=== PATIENT | male | born 1970 | race Caucasian/White ===

== ENCOUNTER 2016-07-21 21:29 | Emergency (ER) | payer SELFPAY ==
[2016-07-21 22:20] VITALS: BMI 25.7
[2016-07-21 22:34] LABS: ALL NEG? NO
[2016-07-21 22:36] LABS: AUTOMATED BASOPHIL 1.2 % (0-2); AUTOMATED EOSINOPHIL 1.1 % (0-5); AUTOMATED LYMPH 29.5 % (17-44); AUTOMATED NEUTROPHIL 62.2 % (45-76); MPV 7.5 fL (7.4-10.4)
[2016-07-21 22:45] LABS: LEUKOCYTES/URINE NEG (NEGATIVE); MDMA* NEG (NEGATIVE); METHAMPHETAMINES NEG (NEGATIVE); NITRITE/URINE NEG (NEGATIVE); OXYCODONE NEG (NEGATIVE); URINE OCCULT BLOOD NEG (NEG/TRACE)
[2016-07-21 22:51] LABS: BLOOD UREA NITROGEN 8 MG/DL (9-20); CALCULATED OSMOLALITY 288 MOs/Kg (270-290); CHLORIDE 108 mEq/L (98-107); GLUCOSE 101 MG/DL (70-99); SODIUM LEVEL 151 mEq/L (137-146); TOTAL PROTEIN 7.1 G/DL (6.3-8.2)
[2016-07-21] MEDS ORDERED: SODIUM CHLORIDE 0.9% 3 ML FLUSH FLUSH PRN (23:05)
[2016-07-21 23:07] LABS: ETOH-MGDL 450 mg/dL
[2016-07-21] MEDS ORDERED: THIAMINE 100 MG in NS 100 ML IV ONE (23:45)
--- NOTE | 2016-07-21 23:57 | EDPRACDOC ---
- General Information Chief Complaint: Alcohol Withdrawal Stated Complaint: DETOX Time Seen by Provider: 07/21/16 22:31 Information Source: Patient Mode Of Arrival: Car Home Medications: Home Medications Phenytoin Sodium Extended [Dilantin] 100 mg PO DAILY 03/20/16 Sertraline HCl [Zoloft] 100 mg PO QHS 03/20/16 CloNIDine (Antihypertensive) [Catapres] 0.1 mg PO TID 07/04/16 Hydroxyzine Pamoate 50 mg PO QHS PRN 07/04/16 Ibuprofen 600 mg PO Q6H PRN #20 tablet 07/04/16 Trazodone HCl 100 mg PO QHS PRN 07/04/16 Amoxicillin 250 mg PO QID 07/21/16 Allergies/Adverse Reactions: Allergies Allergy/AdvReac Type Severity Reaction Status Date / Time peanut Allergy Hives* Verified 07/22/16 00:19 Penicillins Allergy Rash-Genera Verified 07/22/16 00:19 lized shellfish derived Allergy Hives* Verified 07/22/16 00:19 - History of Present Illness Onset: [employer] Reason for Seeking Treatment: Other ([facility] went to [facility] with signs of etoh intoxication) Drinking Timeframe: Reports: Unknown Lacerations: Reports: None Alcohol Ingested: Reports: ETOH Alcohol Type: Reports: Liquor Amount Per Day: half gallon per day Last Used: [employer] Circumstances: Reports: Medical Clearance Relevant History: Reports: Alcoholism, ETOH Withdrawal, Detox Treatment. Denies : Substance Abuse Associated Signs & Symptoms: Reports: None - Alcohol Withdrawal Screening Recent significant alcohol intake (estimated BAL >0.15): Yes (he is clinically intoxicated, and he has liquor in his coat) Recent cessation of alcohol intake: No Any indication of Alcohol Withdrawal Syndrome: negative: Autonomic Hyperactivity , Nausea/Vomiting, Hallucinations, Seizure Any Hx Alcohol Withdrawal Syndrome or Delirium Tremens: Yes (pt states hx sz's with withdrawal) Other Psychiatric Conditions: Positive: Depression ED Past Medical History - History Reviewed Yes Nurses notes reviewed and agree except as marked - Patient Medical History Neurological History: Reports: Seizures Psychological History: Reports: Depression - Social Medical History Smoking Status: Heavy tobacco smoker (5 or more cigarettes/day or daily pipe/ cigar) EDM Review of Systems - Review of Systems ROS Unobtainable: Yes Review of systems cannot be obtained due to the patient's medical condition (intoxication and evasiveness) - Physical Exam Constitutional: Other (pt would not allow himself to be examined. the examis therefore very general) Oriented to: Person Last recorded Vital Signs: Last Vital Signs Temp 98.8 F 07/21/16 21:49 Pulse 90 07/21/16 23:39 Resp 20 07/21/16 23:39 BP 121/64 07/21/16 23:39 Pulse Ox 95 07/21/16 23:39 Oxygen Pulse Oxygen Saturation 95 O2 Device Room Air Oxygen Flow Rate Fraction of Inspired Oxygen ( FIO2) - HEENT Head: Normal - Respiratory/Cardiovascular Respiratory: Other (no dyspnea). negative: Accessory Muscle Use, Tachypnea - Musculoskeletal Extremities: Other (no deformities) - Integumentary Skin: negative: Pale, Rash - Neurologic Cranial Nerve: Normal Mood Description: Uncooperative. negative: Combative Thought: Rambling Conversation. negative: Delusions Neurologic Comment: he is awake and alert to person - Re-evaluation Re-evaluation 1 Re-evaluation Time: 01:32 (i was summoned to pt's bedside b/c he suggested that he may leav [facility]. the pt actually said to me that he would prefer not to leave [facility], that he wouldprefer to speak with mental health professionals to help him to stop etoh abuse. he is unhappy about being in the [facility] staff said that they will try to find a more private room for him.) Re-evaluation 2 Re-evaluation Time: 06:10 (pt up and about, walking doesnt appear to be intoxicated clinically. 2nd etoh is pending.) Re-evaluation 3 Re-evaluation Time: 07:05 (pt is conversant and not intoxicated clinically. wants dc. will comply. he wants to go to his home in [place]) - Results Result Diagrams: 07/21/16 22:24 07/21/16 22:24 WBC 9.5 xk/uL (3.8-10.8) 07/21/16 22:24 RBC 4.12 xM/uL (4.70-6.10) L 07/21/16 22:24 Hgb 12.8 g/dL (14.0-18.0) L 07/21/16 22:24 Hct 37.6 % (42-52) L 07/21/16 22:24 MCV 91 fL (80-94) 07/21/16 22:24 MCH 31.0 pg (27-32) 07/21/16 22:24 MCHC 34.0 g/dl (33-36) 07/21/16 22:24 RDW 13.2 % (11.5-14.5) 07/21/16 22:24 Plt Count 318 xk/uL (130-400) 07/21/16 22:24 MPV 7.5 fL (7.4-10.4) 07/21/16 22:24 Neut % (Auto) 62.2 % (45-76) 07/21/16 22:24 Lymph % (Auto) 29.5 % (17-44) 07/21/16 22:24 Haywood % (Auto) 6.0 % (3-10) 07/21/16 22:24 Eos % (Auto) 1.1 % (0-5) 07/21/16 22:24 Baso % (Auto) 1.2 % (0-2) 07/21/16 22:24 Absolute Neuts (auto) 5.89 xk/uL (1.7-8.2) 07/21/16 22:24 Absolute Lymphs (auto) 2.76 xk/uL (0.65-4.75) 07/21/16 22:24 Sodium 151 mEq/L (137-146) H 07/21/16 22:24 Potassium 3.9 mEq/L (3.5-5.1) 07/21/16 22:24 Chloride 108 mEq/L (98-107) H 07/21/16 22:24 Carbon Dioxide 25 mMOL/L (22-33) 07/21/16 22:24 Anion Gap 22 mEq/L (8-16) H 07/21/16 22:24 BUN 8 MG/DL (9-20) L 07/21/16 22:24 Creatinine 0.70 MG/DL (0.66-1.25) 07/21/16 22:24 Estimated GFR (MDRD) > 60 mL/min (>=60) 07/21/16 22:24 Glucose 101 MG/DL (70-99) H 07/21/16 22:24 Calculated Osmolality 288 MOs/Kg (270-290) 07/21/16 22:24 Calcium 9.0 MG/DL (8.4-10.2) 07/21/16 22:24 Total Bilirubin 0.3 MG/DL (0.2-1.3) 07/21/16 22:24 AST 43 IU/L (17-59) 07/21/16 22:24 ALT 35 IU/L (21-72) 07/21/16 22:24 Alkaline Phosphatase 62 IU/L (38-126) 07/21/16 22:24 Total Protein 7.1 G/DL (6.3-8.2) 07/21/16 22:24 Albumin 4.1 G/DL (3.5-5.0) 07/21/16 22:24 Urine Color Yellow 07/21/16 21:51 Urine Clarity Clear 07/21/16 21:51 Urine pH 7.0 (5.0-8.0) 07/21/16 21:51 Ur Specific Brady </=1.005 (1.003-1.035) 07/21/16 21:51 Urine Protein Neg (NEG/TRACE) 07/21/16 21:51 Urine Glucose (UA) Neg (NEGATIVE) 07/21/16 21:51 Urine Ketones Neg (NEGATIVE) 07/21/16 21:51 Urine Occult Blood Neg (NEG/TRACE) 07/21/16 21:51 Urine Nitrite Neg (NEGATIVE) 07/21/16 21:51 Urine Bilirubin Neg (NEGATIVE) 07/21/16 21:51 Urine Urobilinogen <2.0 MG/DL (0-1) 07/21/16 21:51 Ur Leukocyte Esterase Neg (NEGATIVE) 07/21/16 21:51 Urine Opiates Screen Neg (NEGATIVE) 07/21/16 21:51 Ur Oxycodone Screen Neg (NEGATIVE) 07/21/16 21:51 Urine Methadone Screen Neg (NEGATIVE) 07/21/16 21:51 Ur Barbiturates Screen Neg (NEGATIVE) 07/21/16 21:51 Ur Tricyclics Screen Neg (NEGATIVE) 07/21/16 21:51 Ur Phencyclidine Scrn Neg (NEGATIVE) 07/21/16 21:51 Ur Amphetamines Screen *positive* (NEGATIVE) H 07/21/16 21:51 U Methamphetamines Scrn Neg (NEGATIVE) 07/21/16 21:51 Urine MDMA Screen Neg (NEGATIVE) 07/21/16 21:51 U Benzodiazepines Scrn *positive* (NEGATIVE) H 07/21/16 21:51 Urine Cocaine Screen Neg (NEGATIVE) 07/21/16 21:51 Ur THC Screen Neg (NEGATIVE) 07/21/16 21:51 Plasma/Serum Ethyl Alc 0.45 % (<0.01) H* 07/21/16 22:24 Lab Results 07/21/16 07/21/16 07/21/16 22:24 22:24 21:51 WBC 9.5 RBC 4.12 L Hgb 12.8 L Hct 37.6 L MCV 91 MCH 31.0 MCHC 34.0 RDW 13.2 Plt Count 318 MPV 7.5 Neut % (Auto) 62.2 Lymph % (Auto) 29.5 Haywood % (Auto) 6.0 Eos % (Auto) 1.1 Baso % (Auto) 1.2 Absolute Neuts (auto) 5.89 Absolute Lymphs (auto) 2.76 Sodium 151 H Potassium 3.9 Chloride 108 H Carbon Dioxide 25 Anion Gap 22 H BUN 8 L Creatinine 0.70 Estimated GFR (MDRD) > 60 Glucose 101 H Calculated Osmolality 288 Calcium 9.0 Total Bilirubin 0.3 AST 43 ALT 35 Alkaline Phosphatase 62 Total Protein 7.1 Albumin 4.1 Urine Color Yellow Urine Clarity Clear Urine pH 7.0 Ur Specific Brady </=1.005 Urine Protein Neg Urine Glucose (UA) Neg Urine Ketones Neg Urine Occult Blood Neg Urine Nitrite Neg Urine Bilirubin Neg Urine Urobilinogen <2.0 Ur Leukocyte Esterase Neg Urine Opiates Screen Ur Oxycodone Screen Urine Methadone Screen Ur Barbiturates Screen Ur Tricyclics Screen Ur Phencyclidine Scrn Ur Amphetamines Screen U Methamphetamines Scrn Urine MDMA Screen U Benzodiazepines Scrn Urine Cocaine Screen Ur THC Screen Plasma/Serum Ethyl Alc 0.45 H* 07/21/16 21:51 WBC RBC Hgb Hct MCV MCH MCHC RDW Plt Count MPV Neut % (Auto) Lymph % (Auto) Haywood % (Auto) Eos % (Auto) Baso % (Auto) Absolute Neuts (auto) Absolute Lymphs (auto) Sodium Potassium Chloride Carbon Dioxide Anion Gap BUN Creatinine Estimated GFR (MDRD) Glucose Calculated Osmolality Calcium Total Bilirubin AST ALT Alkaline Phosphatase Total Protein Albumin Urine Color Urine Clarity Urine pH Ur Specific Brady Urine Protein Urine Glucose (UA) Urine Ketones Urine Occult Blood Urine Nitrite Urine Bilirubin Urine Urobilinogen Ur Leukocyte Esterase Urine Opiates Screen Neg Ur Oxycodone Screen Neg Urine Methadone Screen Neg Ur Barbiturates Screen Neg Ur Tricyclics Screen Neg Ur Phencyclidine Scrn Neg Ur Amphetamines Screen *positive* H U Methamphetamines Scrn Neg Urine MDMA Screen Neg U Benzodiazepines Scrn *positive* H Urine Cocaine Screen Neg Ur THC Screen Neg Plasma/Serum Ethyl Alc Decision Time to Discharge: 07:06 - Departure Yes I personally saw and evaluated the patient. Disposition: Home Condition: Improved Final Diagnosis: Alcohol abuse, Alcohol intoxication Instructions: Abuse of Alcohol (ED), Alcohol Withdrawal (ED), Alcohol Intoxication (ED) Education/Counseling Given To: Patient Education/Counseling Given Regarding: Diagnosis, Treatment, Follow Up Referrals: None,No Provider [Primary Care Provider] - One Week Lionel Mckeon II, MD [Staff Physician] - Call for Appointment
[2016-07-22] MEDS ORDERED: LORAZEPAM 2 MG/ML VIAL IV ONE (01:32)
[2016-07-22] MEDS ORDERED: SODIUM CHLORIDE 0.9% 3 ML FLUSH FLUSH SCH (06:00)
[2016-07-22 06:27] VITALS: TEMP 98.1
[2016-07-22 07:21] VITALS: BP 101/67; PULSE 111
== END 2016-07-22 07:25 | disposition home or self-care (01) ==
LOC: ED 21:29
DX: F10.229 Alcohol dependence with intoxication, unspecified (principal); F17.200 Nicotine dependence, unspecified, uncomplicated
CPT/HCPCS: 36415; 80053; 80307; 80320; 81001; 85025; 86592; 96365; 96366; 96375; 99284; J2060; J3411; J7030

== ENCOUNTER 2016-07-22 19:17 | Emergency (ER) | payer SELFPAY ==
[2016-07-22 19:31] VITALS: TEMP 97.9; BMI 25.8
[2016-07-22 19:48] LABS: AUTOMATED BASOPHIL 1.6 % (0-2); AUTOMATED EOSINOPHIL 0.1 % (0-5); AUTOMATED LYMPH 20.6 % (17-44); AUTOMATED MONOCYTE 2.5 % (3-10); AUTOMATED NEUTROPHIL 75.2 % (45-76); MPV 7.5 fL (7.4-10.4)
[2016-07-22 19:57] LABS: BLOOD UREA NITROGEN 13 MG/DL (9-20); CALCIUM 8.8 MG/DL (8.4-10.2); CALCULATED OSMOLALITY 283 MOs/Kg (270-290); CHLORIDE 107 mEq/L (98-107); GLUCOSE 72 MG/DL (70-99); SODIUM LEVEL 148 mEq/L (137-146); TOTAL PROTEIN 7.8 G/DL (6.3-8.2)
[2016-07-22 20:05] LABS: ETOH-MGDL 369 mg/dL
[2016-07-22 22:30] LABS: ALL NEG? NO
--- NOTE | 2016-07-22 22:35 | EDPRACDOC ---
ED Alcohol/Substance Withdrawl - General Information Chief Complaint: Psychiatric Illness Stated Complaint: PATIENT REQUESTING DETOX Time Seen by Provider: 07/22/16 22:11 Information Source: Patient Mode of Arrival: Walk Home Medications: Home Medications Phenytoin Sodium Extended [Dilantin] 100 mg PO DAILY 03/20/16 Sertraline HCl [Zoloft] 100 mg PO QHS 03/20/16 CloNIDine (Antihypertensive) [Catapres] 0.1 mg PO TID 07/04/16 Hydroxyzine Pamoate 50 mg PO QHS PRN 07/04/16 Ibuprofen 600 mg PO Q6H PRN #20 tablet 07/04/16 Trazodone HCl 100 mg PO QHS PRN 07/04/16 Amoxicillin 250 mg PO QID 07/21/16 Allergies/Adverse Reactions: Allergies Allergy/AdvReac Type Severity Reaction Status Date / Time peanut Allergy Hives* Verified 07/22/16 19:30 Penicillins Allergy Rash-Genera Verified 07/22/16 19:30 lized shellfish derived Allergy Hives* Verified 07/22/16 19:30 - History of Present Illness HPI: PT PRESENTS FOR ETOH TREATMENT. PT WAS OVER 140 DAYS CLEAN UNTIL BEFORE WHEN HE RELAPSED, DRINKING A FIFTH OF ALCOHOL DAILY. PT WAS IN A [facility] HOUSE IN [place], BUT WAS KICKED OUT. SEEN IN ED LAST NIGHT. PROVIDED WITH FUNDS TO RIDE BUS TO HIS HOME IN [place]. PT RETURNS TODAY, C /O SUICIDAL IDEATIONS. ONLY PLAN IS TO DRINK HIMSELF TO . HAS BEEN PLAN FOR YEARS. HE STATES HE CAN'T FIGURE OUT WHY IT WON'T KILL HIM. PT DENIES HI. NO PHYSICAL COMPLAINTS. ED Past Medical History - History Reviewed Yes Nurses notes reviewed and agree except as marked - Patient Medical History Neurological History: Reports: Seizures Psychological History: Denies: Depression - Social Medical History Smoking Status: Heavy tobacco smoker (5 or more cigarettes/day or daily pipe/ cigar) EDM Review of Systems - Review of Systems ROS Negative Except as Marked: Yes All systems reviewed and were negative except as marked Respiratory: No Symptoms Reported Cardiovascular: No Symptoms Reported Gastrointestinal: No Symptoms Reported Genitourinary: No Symptoms Reported Musculoskeletal: No Symptoms Reported - Physical Exam Constitutional: No apparent distress, Alert (Awake), ETOH, Well appearing Oriented to: Time, Person, Place Last recorded Vital Signs: Last Vital Signs Temp 97.9 F 07/22/16 19:26 Pulse 93 07/22/16 19:26 Resp 20 07/22/16 19:26 BP 111/69 07/22/16 19:26 Pulse Ox 95 07/22/16 19:26 Oxygen Pulse Oxygen Saturation 95 O2 Device Room Air Oxygen Flow Rate Fraction of Inspired Oxygen ( FIO2) - HEENT Head: Normal ( normocephalic) Eye Exam: Normal (PERRL, EOMI, Sclera white) Oropharynx: Normal (Pharynx:Moist without exudate,Gums-no swelling) Nose: No Symptoms Reported (septum midline) Neck: Normal (FROM, trachea at midline) - Respiratory/Cardiovascular Respiratory: Normal - CTA (BBS clear to auscultation without adventitious sounds ) Cardiovascular: Normal (RRR without murmur, gallop or rub) - GI Auscultation: Normal (NABS) Palpation: Normal (Soft,No rebound or guarding, non distended) Tenderness: Non tender Butler's Sign: Negative - Musculoskeletal Back: Normal (Non-Tender) Extremities: Normal (Normal tone, Pulses 2+ No cyanosis or edema, FROM) - Integumentary Skin: Normal, Warm, Dry Lymphatics: Normal (no adenopathy) - Neurologic Memory Impaired: Normal Motor Function: Normal (Normal tone, Pulses 2+ No cyanosis or edema, FROM) Cranial Nerve: Normal (CN II-X11 intact sensation, strength 5/5) Cerebellar: Normal Mood Description: Normal Perception: Normal - Results 07/22/16 19:37 07/22/16 19:37 WBC 12.2 xk/uL (3.8-10.8) H 07/22/16 19:37 RBC 4.56 xM/uL (4.70-6.10) L 07/22/16 19:37 Hgb 13.9 g/dL (14.0-18.0) L 07/22/16 19:37 Hct 41.9 % (42-52) L 07/22/16 19:37 MCV 92 fL (80-94) 07/22/16 19:37 MCH 30.4 pg (27-32) 07/22/16 19:37 MCHC 33.1 g/dl (33-36) 07/22/16 19:37 RDW 13.7 % (11.5-14.5) 07/22/16 19:37 Plt Count 339 xk/uL (130-400) 07/22/16 19:37 MPV 7.5 fL (7.4-10.4) 07/22/16 19:37 Neut % (Auto) 75.2 % (45-76) 07/22/16 19:37 Lymph % (Auto) 20.6 % (17-44) 07/22/16 19:37 Lamar % (Auto) 2.5 % (3-10) L 07/22/16 19:37 Eos % (Auto) 0.1 % (0-5) 07/22/16 19:37 Baso % (Auto) 1.6 % (0-2) 07/22/16 19:37 Absolute Neuts (auto) 9.15 xk/uL (1.7-8.2) H 07/22/16 19:37 Absolute Lymphs (auto) 2.44 xk/uL (0.65-4.75) 07/22/16 19:37 Sodium 148 mEq/L (137-146) H 07/22/16 19:37 Potassium 3.9 mEq/L (3.5-5.1) 07/22/16 19:37 Chloride 107 mEq/L (98-107) 07/22/16 19:37 Carbon Dioxide 16 mMOL/L (22-33) L 07/22/16 19:37 Anion Gap 29 mEq/L (8-16) H 07/22/16 19:37 BUN 13 MG/DL (9-20) 07/22/16 19:37 Creatinine 0.80 MG/DL (0.66-1.25) 07/22/16 19:37 Estimated GFR (MDRD) > 60 mL/min (>=60) 07/22/16 19:37 Glucose 72 MG/DL (70-99) 07/22/16 19:37 Calculated Osmolality 283 MOs/Kg (270-290) 07/22/16 19:37 Calcium 8.8 MG/DL (8.4-10.2) 07/22/16 19:37 Total Bilirubin 0.4 MG/DL (0.2-1.3) 07/22/16 19:37 AST 67 IU/L (17-59) H 07/22/16 19:37 ALT 48 IU/L (21-72) 07/22/16 19:37 Alkaline Phosphatase 84 IU/L (38-126) 07/22/16 19:37 Total Protein 7.8 G/DL (6.3-8.2) 07/22/16 19:37 Albumin 4.6 G/DL (3.5-5.0) 07/22/16 19:37 Plasma/Serum Ethyl Alc 0.37 % (<0.01) H 07/22/16 19:37 Lab Results 07/22/16 07/22/16 19:37 19:37 WBC 12.2 H RBC 4.56 L Hgb 13.9 L Hct 41.9 L MCV 92 MCH 30.4 MCHC 33.1 RDW 13.7 Plt Count 339 MPV 7.5 Neut % (Auto) 75.2 Lymph % (Auto) 20.6 Lamar % (Auto) 2.5 L Eos % (Auto) 0.1 Baso % (Auto) 1.6 Absolute Neuts (auto) 9.15 H Absolute Lymphs (auto) 2.44 Sodium 148 H Potassium 3.9 Chloride 107 Carbon Dioxide 16 L Anion Gap 29 H BUN 13 Creatinine 0.80 Estimated GFR (MDRD) > 60 Glucose 72 Calculated Osmolality 283 Calcium 8.8 Total Bilirubin 0.4 AST 67 H ALT 48 Alkaline Phosphatase 84 Total Protein 7.8 Albumin 4.6 Plasma/Serum Ethyl Alc 0.37 H Decision Time to Discharge: 06:18 - Departure Yes I personally saw and evaluated the patient. Disposition: Home Condition: Stable Final Diagnosis: Alcohol intoxication Qualifiers: Complication of substance-induced condition: uncomplicated Qualified Code(s): F10.120 - Alcohol abuse with intoxication, uncomplicated Instructions: Abuse of Alcohol (ED) Education/Counseling Given To: Patient Education/Counseling Given Regarding: Diagnosis Referrals: None,No Provider [Primary Care Provider] - One Week
[2016-07-22 22:36] LABS: MDMA* NEG (NEGATIVE); METHAMPHETAMINES NEG (NEGATIVE); OXYCODONE NEG (NEGATIVE)
[2016-07-23 06:33] VITALS: BP 103/63; PULSE 86
== END 2016-07-23 06:33 | disposition home or self-care (01) ==
LOC: ED 19:17
DX: F10.120 Alcohol abuse with intoxication, uncomplicated (principal)
CPT/HCPCS: 36415; 80053; 80307; 85025; 86592; 99283